=== PATIENT | male | born 1945 | race Caucasian/White ===

== ENCOUNTER 2017-12-11 11:04 | Inpatient (IN) | payer OTHER ==
[~2017-12-11] VITALS: Ht 177.8 cm; Wt 97.1 kg
--- NOTE | ~2017-12-11 | 2DMMODE ---
[address] [address] 2 D/M-MODE ECHOCARDIOGRAM Name: COLEMAN PRICE Room #: 243-P ADM IN .R.#: [id number] Admission: 12/11/17 Attend Phys: Loc Brown, Discharge: Date of : 41 Date of Service: 12/14/171701 Report #: [id number] THIS REPORT FOR: //name// APPROVED REPORT Study performed: 12/14/2017 08:22:42 EXAM: Comprehensive 2D, Doppler, and color-flow Echocardiogram Patient Location: [facility] Status: routine BSA: 2.17 HR: 108 bpm BP: 114/53 mmHg Other Information Study Quality: Technically Limited Indications CAD S^P Ascending Aortic Root repair. Post op hypotension. Left Ventricle The left ventricle is normal size. There is normal left ventricular wall thickness. Left ventricular systolic function is borderline. Right Ventricle The right ventricle is normal size. The right ventricular systolic function is normal. Catheter is present in the right ventricle. Atria Left atrium is not well visualized. Right atrium is not well visualized. Aortic Valve The aortic valve is normal in structure. Mitral Valve Mitral valve is not well visualized. Tricuspid Valve Tricuspid valve is not well visualized. Pulmonic Valve [address] [address] 2 D/M-MODE ECHOCARDIOGRAM Name: COLEMAN PRICE Abigail Room #: 243-P ADM IN M.R.#: [id number] Admission: 12/11/17 Attend Phys: Loc Brown, Discharge: Date of : 41 Date of Service: 12/14/171701 Report #: [id number] Pulmonic valve is not well visualized. Great Vessels Ascending Aortic graft noted Pericardium There is no pericardial effusion. <Conclusion> Left ventricular systolic function is borderline. There is no pericardial effusion. <ELECTRONICALLY SIGNED> By: Eleazar Srinivasan MD, FACC 12/14/171701 01 01 Eleazar Srinivasan MD, FACC /INF
--- NOTE | ~2017-12-11 | HC ---
[facility] [place] [address] CONSULTATION Name: COLEMAN PRICE Room #: [facility] IN M.R.#: [id number] Admission: 12/11/17 Attend Phys: Loc Brown DO Discharge: Date of : 41 Report #: [id number] THIS REPORT FOR: //name// CC: Loc Cabrera REASON FOR CONSULTATION: Acute kidney injury. HISTORY OF PRESENT ILLNESS: The history was obtained from the chart as the patient is currently intubated. A 72-year-old with past medical history of hypertension. He is known to have coronary artery disease and he presented to [facility] on the with symptoms of chest pain. Cardiac catheterization revealed multivessel disease and he was transferred to our facility for further evaluation and management. He is not aware or medical chart states that he does not have any kidney problems in the past. Unfortunately, the patient had a CT contrast, which revealed pulmonary embolism and an ascending aortic aneurysm. He underwent bypass surgery with BENNETT and saphenous vein grafting. He also had his thoracic aneurysm repaired with an interposition graft. Preoperatively, the patient's creatinine has been in the 1.1 range on the and this had started to climb up to 1.6 and 2.4 this morning. He did run into episodes of hypotension. I am being consulted to manage his acute kidney injury. He is currently intubated on multiple pressors. PAST MEDICAL HISTORY: 1. Hypertension. 2. Hyperlipidemia. PAST SURGICAL HISTORY: 1. Knee replacement. 2. Recent heart surgery with CABG and thoracic aneurysm repair. HOME MEDICATIONS: 1. Micardis. 2. Atorvastatin. 3. Rifaximin for unclear reasons to me. However, currently he is maintained on inpatient medications, including the followin. Amiodarone drip. 2. Propofol drip. 3. Albumin. 4. Normal saline. 5. Famotidine. FAMILY HISTORY: Significant for gout. REVIEW OF SYSTEMS: Unobtainable given the patient's current mental status. PHYSICAL EXAMINATION: [facility] [address] [place] [place] [address] CONSULTATION Name: MARY PRICECarlos Hayes Room #: [address] [place] [address] IN ..#: [id number] Admission: 12/11/17 Attend Phys: Loc Brown DO Discharge: Date of : 41 Report #: [id number] GENERAL: He is intubated, on Peter-Synephrine and dopamine. HEAD AND NECK: ET tube. Right IJ central line. CHEST: Decreased air entry bilaterally with mediastinal and pleural drain. Decreased air entry bilaterally. CARDIOVASCULAR: No rub. ABDOMEN: Soft, nontender. LOWER EXTREMITIES: No edema. LABORATORY DATA: Reviewed. Hemoglobin 14.6, pH 7.3. Potassium 3.7, BUN 25, creatinine 2.4. Anion gap 16. Chest x-ray reviewed, no florid pulmonary edema. ASSESSMENT, IMPRESSION AND PLAN: 1. Acute kidney injury. 2. Post coronary artery bypass graft. 3. Hypotension.. 4. Post-contrast exposure. 5. Thoracic aneurysm repair. 6. His acute kidney injury is all due to prerenal, contrast combination. 7. Aggressive hemodynamic support. 8. Bolus with IV fluid. 9. Transfusion. 10. Avoid nephrotoxins. 11. Discontinue all nephrotoxins and potassium supplement. 12. Monitor urine output. 13. Continue to follow along. 14. Discussed with the family and with the that if there is no improvement in his conditions in the next 24 hours, we might consider CRRT. However, I will reevaluate in the next few hours. <ELECTRONICALLY SIGNED> By: Joaquín Edwards MD 12/17/17 0638 0848 1322 Joaquín Edwards MD /nt
--- NOTE | ~2017-12-11 | EKG ---
[place] [address] [facility] [place] [address] ELECTROCARDIOGRAM REPORT Name: PRICECOLEMAN Room #: 202-P ADM IN M.R.#: [id number] Admission: 12/11/17 Attend Phys: Loc Brown DO Discharge: Date of : 41 Report #: [id number] THIS REPORT FOR: //name// 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 : 1945 Requested By: Deborah Chairez Order Number: [id number] MD: Enrique Spangler Measurements Intervals [place] Rate: 105 P: DC: QRS: 91 QRSD: 98 T: -70 QT: 377 QTc: 499 Interpretive Statements Atrial fibrillation Right axis deviation Abnormal R-wave progression, late transition Borderline T abnormalities, inferior leads Borderline prolonged QT interval Compared to ECG 12/19/2017 06:53:28 T-wave abnormality now present Heart rate has increased Electronically Signed On 12-21-2017 8:39:11 CDT by Enrique Spangler [email or web address] <ELECTRONICALLY SIGNED> By: Enrique Spangler MD, FACC 12/21/17 0839 18 18 Enrique Spangler MD, [facility] /EPI
--- NOTE | ~2017-12-11 | HC ---
[facility] [place] [address] CONSULTATION Name: PRICECOLEMAN W Room #: 202-P [facility] IN M.R.#: [id number] Admission: 12/11/17 Attend Phys: Loc Brown DO Discharge: Date of : 41 Report #: [id number] THIS REPORT FOR: //name// CC: Loc Cabrera REASON FOR CONSULTATION: I was asked to evaluate concerning postoperative leukocytosis and pneumonia. HISTORY OF PRESENT ILLNESS: The patient was a 72-year-old who was admitted on 12/11/2017 in transfer from [facility] with unstable angina. He had multivessel disease and underwent coronary artery bypass grafting with BENNETT and saphenous vein graft in addition to a thoracic aortic aneurysm repair. Postoperatively, developed acute renal failure, respiratory failure along with diagnosis of a pulmonary embolism. He subsequently had been extubated. Has his right neck Cordis in place. His chest tubes are out. He has had occasional sputum production, now growing Serratia. No nausea or vomiting. He has had chronic diarrhea that has been treated as an outpatient with rifaximin. No dysuria. No rashes or decubiti noted. He has been treated as an outpatient for right great toe soft tissue abnormality emanating from underneath his nail that he said was diagnosed as a mole. No increased pain or swelling in this region. PAST MEDICAL HISTORY: Coronary artery disease, hypertension, gastroesophageal reflux, hyperlipidemia, irritable bowel syndrome, renal calculi, osteoarthritis, cataract surgery, bilateral total knee arthroplasties, bilateral carpal tunnel release. FAMILY HISTORY: Noncontributory. SOCIAL HISTORY: Nonsmoker, no significant alcohol intake. ALLERGIES: None known. MEDICATIONS: As noted on his MAR. Now on ceftriaxone. PHYSICAL EXAMINATION: VITAL SIGNS: He is afebrile and hemodynamically stable, alert, cooperative. HEENT: Unremarkable. Right IJ catheter site is unremarkable. Sternal incision unremarkable. HEART: Regular without appreciable murmur or rub. LUNGS: Clear posteriorly. ABDOMEN: Soft and nontender. EXTREMITIES: Unremarkable except for his right great toe with a mass beneath the nail extending distally. Had an eschar over the dorsum of his distal phalanx. LABORATORY STUDIES: Sodium 146, potassium 4, bicarbonate 25, creatinine 1.2. [address] [address] CONSULTATION Name: COLEMAN PRICE Room #: 202[facility] IN ..#: [id number] Admission: 12/11/17 Attend Phys: Loc Brown DO Discharge: Date of : 41 Report #: [id number] Liver function tests normal. Hemoglobin 9.7, WBC 19.1, platelet count 272,000. It is noted that his white blood cell count postoperatively has been 12-21,000. Chest x-ray, right medial basilar infiltrate and residual left retrocardiac atelectasis and infiltrate with small left pleural effusion. IMPRESSION: A 72-year-old, postoperative day #7 from coronary artery bypass grafting and aortic aneurysm repair with persistent leukocytosis. Source seems most likely Pulmonary. We will also check for urinary tract. He does have chronic diarrhea and will be reevaluated as well. Does not appear to have intestinal ischemia or lower extremity ischemia. RECOMMENDATIONS: We will continue ceftriaxone for Serratia coverage. We will need to follow his chest x-ray, may need further imaging if effusion increases on the left. We will check urinalysis and urine culture following removal of his Arevalo catheter. Would like to remove his right IJ catheter if possible. Obtain outside records from his GI workup. May try Lomotil to control his stools. <ELECTRONICALLY SIGNED> By: Bernard Polanco MD 12/21/17 0824 1200 1422 Bernard Polanco MD /nt
--- NOTE | ~2017-12-11 | EKG ---
[place] [address] [facility] [place] [address] ELECTROCARDIOGRAM REPORT Name: ALBERTCOLEMAN W Room #: 243-P ADM IN M.R.#: [id number] Admission: 12/11/17 Attend Phys: Loc Brown DO Discharge: Date of : 41 Report #: [id number] THIS REPORT FOR: //name// [facility] Test Date: 2017-12-13 Test Time: 19:22:40 Pat Name: COLEMAN PRICE Department: Room: [facility] Gender: M Rehabilitation Physician: ROSANNA : 1945 Requested By: Alana Gallegos Order Number: [id number] MD: Enrique Spangler Measurements Intervals [place] Rate: 85 P: 71 SD: 209 QRS: 52 QRSD: 104 T: -24 QT: 408 QTc: 486 Interpretive Statements Sinus rhythm Nonspecific ST segment abnormality Compared to ECG 12/12/2017 06:06:50 Atrial premature complex(es) no longer present Electronically Signed On 12-14-2017 17:19:03 CDT by Enrique Spangler [email or web address] <ELECTRONICALLY SIGNED> By: Enrique Spangler MD, [facility] 12/14/17 1719 21 21 Enrique Spangler MD, FAC /EPI
--- NOTE | ~2017-12-11 | EKG ---
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: BLANK : 1945 Requested By: Eleazar Srinivasan Order Number: [id number] MD: Enrique Spangler Measurements Intervals [place] Rate: 63 P: 78 [place]: 204 QRS: 82 QRSD: 105 T: 74 QT: 603 QTc: 618 Interpretive Statements Sinus rhythm Borderline right axis deviation Abnormal R-wave progression, late transition Borderline repolarization abnormality Prolonged QT interval Compared to ECG 12/18/2017 06:18:58 Prolonged QT interval now present Ventricular premature complex(es) no longer present Electronically Signed On 12-19-2017 8:15:14 CDT by Enrique Spangler [email or web address] <ELECTRONICALLY SIGNED> By: Enrique Spangler MD, [facility] 12/19/17 0815 0653 0653 Enrique Spangler MD, [facility] /EPI
--- NOTE | ~2017-12-11 | EKG ---
[place] [address] [facility] [place] [address] ELECTROCARDIOGRAM REPORT Name: ALBERTCOLEMAN Room #: 243-P ADM IN M.R.#: [id number] Admission: 12/11/17 Attend Phys: Loc Brown DO Discharge: Date of : 41 Report #: [id number] THIS REPORT FOR: //name// [facility] Test Date: 2017-12-18 Test Time: 06:18:58 Pat Name: COLEMAN PRICE Department: Room: 243 P Gender: M Hop Picker: BLANK : 1945 Requested By: Eleazar Srinivasan Order Number: [id number] MD: Enrique Spangler Measurements Intervals [place] Rate: 75 P: 71 [place]: 186 QRS: 66 QRSD: 91 T: 61 QT: 420 QTc: 470 Interpretive Statements Sinus rhythm Premature ventricular and supraventricular complexes Poor R wave progression Compared to ECG 12/14/2017 06:35:55 Atrial and ventricular premature complex(es) now present nonspecific change in the ST and T-wave segments Electronically Signed On 12-18-2017 9:13:39 CDT by Enrique Spangler [email or web address] <ELECTRONICALLY SIGNED> By: Enrique Spangler MD, [facility] 12/18/17 0913 7 7 Enrique Spangler MD, [facility] /EPI
--- NOTE | ~2017-12-11 | EKG ---
[address] [place] [address] ELECTROCARDIOGRAM REPORT Name: ALBERTCOLEMAN Room #: 243-P ADM IN M.R.#: [id number] Admission: 12/11/17 Attend Phys: Loc Brown DO Discharge: Date of : 41 Report #: [id number] THIS REPORT FOR: //name// [facility] Test Date: 2017-12-14 Test Time: 06:35:55 Pat Name: COLEMAN PRICE Department: Room: 243 P Gender: M Director Of Design: BLANK : 1945 Requested By: Alana Gallegos Order Number: [id number] MD: Enrique Spangler Measurements Intervals [place] Rate: 109 P: -4 [place]: 157 QRS: 68 QRSD: 92 T: -79 QT: 375 QTc: 506 Interpretive Statements Sinus tachycardia Nonspecific ST and T wave abnormality Prolonged QT interval Compared to ECG 12/12/2017 06:06:50 No significant change was found Electronically Signed On 12-14-2017 17:23:35 CDT by Enrique Spangler [email or web address] <ELECTRONICALLY SIGNED> By: Enrique Spangler MD, [facility] 12/14/17 1723 4 4 Enrique Spangler MD, [facility] /EPI
--- NOTE | ~2017-12-11 | EKG ---
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 : 1945 Requested By: Alana Gallegos Order Number: [id number] MD: Enrique Spangler Measurements Intervals [place] Rate: 76 P: 50 CT: 226 QRS: 17 QRSD: 106 T: 19 QT: 469 QTc: 528 Interpretive Statements Sinus rhythm Atrial premature complexes Prolonged CT interval Abnormal R-wave progression, late transition No previous ECG available for comparison Electronically Signed On 12-12-2017 7:58:24 CDT by Enrique Spangler [email or web address] <ELECTRONICALLY SIGNED> By: Enrique Spangler MD, [facility] 12/12/17 0758 D: 04/605 5 Enrique Spangler MD, FACC /EPI
--- NOTE | ~2017-12-11 | O ---
[facility] [place] [address] OPERATIVE REPORT Name: COLEMAN PRICE Room #: 243-P ADM IN M.R.#: [id number] Admission: 12/11/17 Attend Phys: Loc Brown DO Discharge: Date of : 41 Report #: [id number] THIS REPORT FOR: //name// CC: Loc Flores MD [facility] DATE OF SERVICE: 12/13/2017 PREOPERATIVE DIAGNOSES: 1. Coronary artery disease, unstable angina. 2. Ascending aortic aneurysm, 4.5 cm. FINAL DIAGNOSES: 1. Coronary artery disease, unstable angina. 2. Ascending aortic aneurysm, 4.5 cm. OPERATIVE PROCEDURE PERFORMED: 1. Coronary artery bypass grafting x 4 with left internal mammary artery to LAD, radial artery Y graft to diagonal vessel, radial artery graft to the right coronary artery and saphenous vein graft to OM. 2. Left radial artery harvest. 3. Repair of ascending aortic aneurysm with 30 mm Dacron tube interposition graft. 4. Bilateral femoral artery exploration. SURGEON: Kranthi Alva MD TELEVISION CAMERA OPERATOR: HERNANDO Vazquez and HERNANDO Christine ANESTHESIA: General. OPERATIVE INDICATIONS: The patient is a 72-year-old male presenting with episodes consistent with unstable angina. He underwent evaluation including echocardiography showing normal LV systolic function and mild aortic insufficiency. The left heart catheterization showed evidence of severe multivessel coronary artery disease not amenable to percutaneous intervention. The patient subsequently referred to cardiothoracic surgery, undergone further evaluation when echocardiography demonstrated a dilated ascending aorta and CT imaging revealed the size of the ascending aorta to be approximately 4.5 cm in size. I felt that it would be prudent to proceed with replacement of the ascending aorta simultaneously as this is a 72-year-old otherwise healthy male with a projected good prognosis. OPERATIVE SUMMARY: The patient was brought to the operating room, placed on the OR table in supine position. After anesthesia was induced via general [facility] [address] [place] [address] OPERATIVE REPORT Name: COLEMAN PRICE Room #: 243-P [facility] IN [facility].#: [id number] Admission: 12/11/17 Attend Phys: Loc Brown DO Discharge: Date of : 41 Report #: [id number] endotracheal route, monitoring lines have been positioned. The patient was prepped and draped in sterile fashion with chlorhexidine. I first harvested radial artery from the left forearm using endoscopic techniques. Saphenous vein was harvested from the left lower extremity using endoscopic technique. A median sternotomy incision was made. The left internal mammary artery was harvested in standard fashion. I then opened the pericardium systemically anticoagulated the patient with heparin. Examination of the aorta showed it to be very large with good tapering towards the innominate artery. However, there was no room to place a cannula in the arch. I therefore performed femoral artery exploration first on the right femoral artery, but due to the significant bleeding into the tissues on the side, we were unable to identify the femoral artery. I therefore performed a femoral exploration on the right side. The patient was given a systemic dose of heparin and a 22-Wallisian cannula was placed in the left common femoral artery. Next, a venous cannula was placed in the right atrium. The antegrade cardioplegic cannula was positioned. Cardiopulmonary bypass was begun, retrograde cardioplegic cannula was positioned. Under low flow conditions, the aorta was cross clamped, the heart was arrested with 1 liter of cold antegrade cardioplegia, followed by 500 mL cold retrograde cardioplegia, this was augmented with topical ice slush. Diastolic arrest was achieved and maintained throughout this operation with intermittent doses of cold antegrade and retrograde cardioplegia as well as cardioplegia given down grafts and topical ice slush. We first opened up the diagonal vessel, small vessel 1.7 mm in size. Distal anastomosis was carried out in end-to-side fashion with 7-0 Prolene utilizing the radial artery. We cut this segment after about 3 cm. We then examined the right coronary system. We opened the right coronary artery just at the takeoff near the PDA. The PDA was small, but the posterolateral branch was bigger. I was able to pass a 1.5 mm probe distally in the right coronary artery. We therefore constructed a distal anastomosis in end-to-side fashion with 7-0 Prolene utilizing the radial artery at this site. Next, we addressed the first obtuse marginal vessel. We opened it up and constructed distal anastomosis in end-to-side fashion with 7-0 Prolene utilizing reverse saphenous vein. Cardioplegia was then given down of the graft. We then incised the aorta, removed our aortic root vent. We teed off the aorta just below the crossclamp. We then fully excise all aortic tissue down to the sinotubular junction. A 30 mm tube graft was brought onto the field, cut to the appropriate length, distal anastomosis was carried out in a running fashion with 4-0 Prolene. Then, the graft was cut to the appropriate length and the proximal anastomosis was fashioned with 4-0 Prolene as well. We then replaced our aortic root vent and proximal anastomoses were fashioned to the ascending aorta from the saphenous vein graft and the radial artery using 6-0 and 7-0 Prolene after a graftotomy was made with an eye cautery. Lastly, the ROSALIND was brought on the field. It was a good size and had excellent flow. We opened up the LAD, was about a 2 mm artery at this site. Distal anastomosis was carried out in end-to-side fashion with 7-0 Prolene. The pedicle was tacked to the epicardium with 6-0 Prolene. [facility] [address] [place] [address] OPERATIVE REPORT Name: COLEMAN PRICE Abigail Room #: 243-P [facility] IN ..#: [id number] Admission: 12/11/17 Attend Phys: Loc Brown DO Discharge: Date of : 41 Report #: [id number] We then brought over the segment of radial artery anastomosed to the diagonal vessel. This was anastomosed to the internal mammary artery in end-to-side fashion with 7-0 Prolene. Warm cardioplegia was given both retrograde and antegrade. We placed the patient in steep Trendelenburg. We de-aired the heart through the left ventricular apex with an 18 gauge needle while holding blood in the heart and ventilating the lungs. This was performed while giving retrograde cardioplegia. The retrograde cannula was removed and then again while giving antegrade cardioplegia. Under low flow conditions, the aortic crossclamp was released to begin the period of reperfusion and similar de-airing maneuvers were performed again. The patient was placed back in the supine position. The patient was rewarmed to 37 degree centigrade. Three successive doses of calcium and single dose of magnesium were given over 3-5 minute intervals. The lungs were reinflated. Atrial and ventricular pacing wires were placed; however, the patient spontaneously returned to normal sinus rhythm. After suitable period of reperfusion and final de-airing maneuvers, the patient was weaned from cardiopulmonary bypass without inotropic support. Protamine was given to reverse the heparin, decannulation was effected. Once satisfactory hemostasis was achieved, two 32-Wallisian chest tubes were placed in the anterior mediastinum and 24 Kolby drain in left pleural space. They were all brought out through separate stab incisions. The sternum was closed with #7 wire. The fascia, subcutaneous and skin were closed in multiple layers with absorbable suture. The procedure was completed. The patient was taken to the ICU in stable condition after the femoral artery sites were closed in multiple layers and the left common femoral artery was closed in a running 5-0 Prolene suture. By: [id number] 2015 /nt
--- NOTE | ~2017-12-11 | S ---
[facility] [address] [place] [address] SURGICAL PATH RPT PROCEDURE Name: COLEMAN PRICE Room #: 243-P ADM IN M.R.#: [id number] Admission: 12/11/17 Date of : 41 Discharge: Report #: [id number] Path Case #: [id number] PATHOLOGY REPORT DRAFT COLLECTION DATE: 12/13/2017 RECEIVED DATE: 12/14/2017 SPECIMEN(S) RECEIVED: A.Segment ascending aorta
--- NOTE | ~2017-12-11 | EKG ---
[place] [address] [address] [place] [address] ELECTROCARDIOGRAM REPORT Name: PRICECOLEMAN Room #: 202-P [facility] IN M.R.#: [id number] Admission: 12/11/17 Attend Phys: Loc Brown DO Discharge: 12/23/17 Date of : 41 Report #: [id number] THIS REPORT FOR: //name// 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 : 1945 Requested By: Eleazar Srinivasan Order Number: [id number] MD: Enrique Spangler Measurements Intervals Lanse Rate: 75 P: 32 AL: 185 QRS: 56 QRSD: 108 T: 90 QT: 438 QTc: 490 Interpretive Statements Sinus rhythm Low voltage, precordial leads Borderline prolonged QT interval Compared to ECG 12/20/2017 21:19:05 Sinus rhythm has replaced atrial fibrillation Electronically Signed On 12-23-2017 16:33:46 CDT by Enrique Spangler [email or web address] <ELECTRONICALLY SIGNED> By: Enrique Spangler MD, [facility] 12/23/17 1633 7 7 Enrique Spangler MD, [facility] /EPI
--- NOTE | ~2017-12-11 | 2DMMODE ---
[facility] [address] [place] [address] 2 D/M-MODE ECHOCARDIOGRAM Name: COLEMAN PRICE Room #: 213-P [facility] IN [facility].#: [id number] Admission: 12/11/17 Attend Phys: Loc Brown, Discharge: Date of : 41 Date of Service: 12/12/17 1219 Report #: [id number] THIS REPORT FOR: //name// APPROVED REPORT Study performed: 12/12/2017 08:03:00 EXAM: Comprehensive 2D, Doppler, and color-flow Echocardiogram Patient Location: Echo lab Room #: 213 Status: routine BSA: 2.13 HR: 54 bpm BP: 135/73 mmHg Rhythm: NSR/PVCs Other Information Study Quality: Excellent Indications Pre-Op Hx: CAD, HTN, HLD 2D Dimensions RVDd: 32.33 mm LVEF(%): 58.77 (>50%) IVSd: 11.87 (7-11mm) LVOT Diam: 21.77 (18-24mm) LVDd: 53.92 mm PWd: 11.86 (7-11mm) Ascending Ao: 43.56 (22-36mm) LVDs: 36.98 (25-40mm) Aortic Root: 34.34 mm IVC: 21.00 mm Gallego's LVEF: 58.77 % Volumes Left Atrial Volume (Systole) Single Plane 4CH: 74.47 mL Single Plane 2CH: 79.02 mL LA ESV Index: 40.00 mL/m2 Aortic Valve AoV Peak Abran.: 1.83 m/s AO Peak Gr.: 13.42 mmHg LVOT Max P.82 mmHg LVOT Max V: 1.10 m/s LEWIS Vmax: 2.23 cm2 Mitral Valve E/A Ratio: 0.6 [facility] [place] [address] 2 D/M-MODE ECHOCARDIOGRAM Name: COLEMAN RPICE Room #: 213-P [facility] IN .R.#: [id number] Admission: 12/11/17 Attend Phys: Loc Brown, Discharge: Date of : 41 Date of Service: 12/12/17 1219 Report #: [id number] Decel. Time: 263.29 ms MV E Max Abran.: 0.73 m/s MV A Abran.: 1.25 m/s MV PHT: 76.35 ms IVRT: 115.34 ms Pulmonary Valve PV Peak Abran.: 0.80 m/s PV Peak Gr.: 2.56 mmHg Pulmonary Vein P Vein S: 0.57 m/s P Vein A: 0.33 m/s P Vein D: 0.37 m/s P Vein A Dur.: 156.9 msec P Vein S/D Ratio: 1.54 Tricuspid Valve RAP Estimate: 5.00 mmHg Left Ventricle The left ventricle is normal size. There is normal LV segmental wall motion. Mild concentric left ventricular hypertrophy. The left ventricular systolic function is normal. LVEF is 55-60%. Mild diastolic dysfunction is present (impaired relaxation pattern). Right Ventricle The right ventricle is normal size. The right ventricular systolic function is normal. Atria Left atrium is mildly dilated. Right atrium is at the upper limits of normal. Aortic Valve The Aortic valve is sclerotic. Mild aortic regurgitation. There is no aortic valvular stenosis. Mitral Valve There is mild mitral annular calcification. Trace mitral regurgitation. No evidence of mitral valve stenosis. Tricuspid Valve The tricuspid valve is normal in structure. There is no tricuspid valve regurgitation noted. Unable to assess PA pressure. Pulmonic Valve The pulmonary valve is normal in structure. Trace pulmonic [address] [address] 2 D/M-MODE ECHOCARDIOGRAM Name: MARY PRICECarlos Hayes Room #: 213-P [facility]#: [id number] Admission: 12/11/17 Attend Phys: Loc Brown, Discharge: Date of : 41 Date of Service: 12/12/17 1219 Report #: [id number] regurgitation. Great Vessels The aortic root is normal in size. 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 IVC is normal in size and collapses >50% with inspiration. Pericardium There is no pericardial effusion. <Conclusion> Mild concentric left ventricular hypertrophy. LVEF is 55-60%. Left atrium is mildly dilated. Mild aortic regurgitation. 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 <ELECTRONICALLY SIGNED> By: Eleazar Srinivasan MD, FACC 12/12/171218 18 18 Eleazar Srinivasan MD, FACC /INF
[~2017-12-11 11:04] MED LIST: ADULT LOW DOSE81 MG PO; ALLOPURINOL 10100 M1 PO; CRANBERRY400 MG PO; FISH OIL 1,0001 EAC5; FLAX OIL1000 MG PO; LIPITOR10 MG PO; LIPITOR80 MG PO; MICARDIS40 MG PO; MULTIVITAMINS; PROTONIX40 M1 PO; TOPROL XL25 MG PO; XIFAXAN 200 MG200 MG
[2017-12-11 13:15] VITALS: BP 152/85
[2017-12-11 15:15] VITALS: BP 152/85
[2017-12-11 20:52] VITALS: BP 140/77
[2017-12-11 21:59] LABS: URINE BILIRUBIN NEGATIVE (Negative); URINE BLOOD TRACE (Negative); URINE CLARITY CLEAR; URINE COLOR YELLOW; URINE GLUCOSE-RANDOM* NEGATIVE (Negative); URINE KETONES TRACE (Negative); URINE LEUKOCYTES-REFLEX NEGATIVE (Negative); URINE NITRITE-REFLEX NEGATIVE (Negative); URINE PROTEIN (DIPSTICK) NEGATIVE (Negative); URINE SPECIFIC GRAVITY 1.015 (1.005-1.035); URINE UROBILINOGEN 0.2 E.U./dl (0.2-1.0)
[2017-12-12 00:55] VITALS: BP 124/72
[2017-12-12 04:45] VITALS: BP 125/77
[2017-12-12 05:16] LABS: ABSOLUTE NEUTROPHILS 4.8 thou/uL (1.4-8.2); BASOPHILS 0.6 % (0.0-2.0); EOSINOPHILS 4.4 % (0.0-3.0); HEMOGLOBIN 11.4 gm/dL (14.0-18.0); LYMPHOCYTES 24.2 % (24.0-44.0); MCH 31.6 pg (26.0-34.0); MCHC 33.4 g/dL (28.0-37.0); MCV 94.5 fL (80.0-100.0); MONOCYTES 10.6 % (1.0-8.0); PLATELET COUNT 237 thou/uL (150-400); POLYS 60.2 % (36.0-66.0); RDW 14.2 % (10.5-14.5)
[2017-12-12 05:23] LABS: ALBUMIN 3.2 g/dL (3.4-5.0); APTT 27.5 Seconds (24.5-32.8); CALCIUM 8.8 mg/dL (8.5-10.1); CREATININE 1.1 mg/dL (0.7-1.3); INR 1.1; POTASSIUM 3.5 mmol/L (3.5-5.1); TOTAL BILIRUBIN 0.6 mg/dL (<0.1-1.0); TOTAL PROTEIN 6.1 g/dL (6.4-8.2)
[2017-12-12 07:22] VITALS: BP 135/73
[2017-12-12 11:34] VITALS: BP 126/65
[2017-12-12 15:12] LABS: GLYCOHEMOGLOBIN (HGB A1C) 5.2 % (4.8-5.6)
[2017-12-12 15:45] VITALS: BP 147/87
[2017-12-12 18:37] LABS: HEMOGLOBIN 12.3 gm/dL (14.0-18.0); MCH 31.4 pg (26.0-34.0); MCHC 33.3 g/dL (28.0-37.0); MCV 94.4 fL (80.0-100.0); RBC 3.92 mil/uL (4.50-6.00); RDW 14.5 % (10.5-14.5); WBC 9.4 thou/uL (4.0-11.0)
[2017-12-12 18:42] LABS: INR 1.1; PROTIME 10.9 Seconds (9.3-11.4)
[2017-12-12 20:26] VITALS: BP 138/77
[2017-12-13 00:38] VITALS: BP 133/67
[2017-12-13 04:55] VITALS: BP 137/69
[2017-12-13 08:35] VITALS: BP 146/86; BP 152/77
[2017-12-13 10:34] VITALS: BP 147/76
[2017-12-13 17:15] LABS: MCH 31.3 pg (26.0-34.0); MCHC 32.7 g/dL (28.0-37.0); MCV 95.6 fL (80.0-100.0); RBC 2.21 mil/uL (4.50-6.00); RDW 14.3 % (10.5-14.5); WBC 14.4 thou/uL (4.0-11.0)
[2017-12-13 17:17] LABS: HEMATOCRIT 21.1 % (42.0-52.0); HEMOGLOBIN 6.9 gm/dL (14.0-18.0)
[2017-12-13 17:28] LABS: APTT 28.5 Seconds (24.5-32.8); FIBRINOGEN 209.5 mg/dL (210-360); INR 1.4; PROTIME 14.2 Seconds (9.3-11.4)
[2017-12-13 18:26] LABS: POC BE 3 mmol/L (-2.0 to +3.0); POC CA IONIZED 4.6 mg/dL (4.5-5.3); POC GLUCOSE 104 mg/dL (70-99); POC HEMOGLOBIN 11.2 g/dL (14.0-18.0); POC POTASSIUM 3.8 mmol/L (3.5-5.1); POC SODIUM 141 mmol/L (136-145); POC pCO2 40.4 mmHg (35.0-45.0); POC pH 7.432 (7.360-7.450)
[2017-12-13 18:27] LABS: POC BE 0 mmol/L (-2.0 to +3.0); POC CA IONIZED 4.6 mg/dL (4.5-5.3); POC GLUCOSE 160 mg/dL (70-99); POC HCO3 26.2 mmol/L (22.0-26.0); POC HEMOGLOBIN 11.2 g/dL (14.0-18.0); POC POTASSIUM 3.3 mmol/L (3.5-5.1); POC SODIUM 142 mmol/L (136-145); POC pCO2 53.9 mmHg (35.0-45.0); POC pH 7.295 (7.360-7.450)
[2017-12-13 18:27] LABS: POC BE -1 mmol/L (-2.0 to +3.0); POC CA IONIZED 5.9 mg/dL (4.5-5.3); POC GLUCOSE 119 mg/dL (70-99); POC HCO3 24.4 mmol/L (22.0-26.0); POC HEMOGLOBIN 8.5 g/dL (14.0-18.0); POC POTASSIUM 3.8 mmol/L (3.5-5.1); POC SODIUM 142 mmol/L (136-145); POC pCO2 40.6 mmHg (35.0-45.0); POC pH 7.387 (7.360-7.450)
[2017-12-13 18:27] LABS: POC BE -1 mmol/L (-2.0 to +3.0); POC CA IONIZED 4.3 mg/dL (4.5-5.3); POC GLUCOSE 169 mg/dL (70-99); POC HCO3 23.7 mmol/L (22.0-26.0); POC HEMOGLOBIN 8.8 g/dL (14.0-18.0); POC POTASSIUM 3.7 mmol/L (3.5-5.1); POC SODIUM 141 mmol/L (136-145); POC pCO2 37.6 mmHg (35.0-45.0); POC pH 7.407 (7.360-7.450)
[2017-12-13 18:27] LABS: POC BE 0 mmol/L (-2.0 to +3.0); POC CA IONIZED 6.2 mg/dL (4.5-5.3); POC GLUCOSE 149 mg/dL (70-99); POC HCO3 24.8 mmol/L (22.0-26.0); POC HEMOGLOBIN 7.1 g/dL (14.0-18.0); POC POTASSIUM 3.6 mmol/L (3.5-5.1); POC SODIUM 142 mmol/L (136-145); POC pCO2 41.9 mmHg (35.0-45.0); POC pH 7.379 (7.360-7.450)
[2017-12-13 18:27] LABS: POC BE -1 mmol/L (-2.0 to +3.0); POC CA IONIZED 7.5 mg/dL (4.5-5.3); POC GLUCOSE 153 mg/dL (70-99); POC HCO3 24.4 mmol/L (22.0-26.0); POC HEMOGLOBIN 8.5 g/dL (14.0-18.0); POC POTASSIUM 4.4 mmol/L (3.5-5.1); POC SODIUM 141 mmol/L (136-145); POC pCO2 44.2 mmHg (35.0-45.0)
[2017-12-13 18:27] LABS: POC BE -1 mmol/L (-2.0 to +3.0); POC CA IONIZED 4.4 mg/dL (4.5-5.3); POC GLUCOSE 163 mg/dL (70-99); POC HCO3 24.4 mmol/L (22.0-26.0); POC HEMOGLOBIN 8.8 g/dL (14.0-18.0); POC POTASSIUM 4.2 mmol/L (3.5-5.1); POC SODIUM 143 mmol/L (136-145); POC pCO2 42.8 mmHg (35.0-45.0); POC pH 7.365 (7.360-7.450)
[2017-12-13 18:27] LABS: POC BE -4 mmol/L (-2.0 to +3.0); POC CA IONIZED 4.2 mg/dL (4.5-5.3); POC GLUCOSE 149 mg/dL (70-99); POC HCO3 22.4 mmol/L (22.0-26.0); POC HEMOGLOBIN 8.8 g/dL (14.0-18.0); POC SODIUM 140 mmol/L (136-145); POC pCO2 47.4 mmHg (35.0-45.0); POC pH 7.282 (7.360-7.450)
[2017-12-13 18:27] LABS: POC BE -1 mmol/L (-2.0 to +3.0); POC CA IONIZED 4.2 mg/dL (4.5-5.3); POC GLUCOSE 154 mg/dL (70-99); POC HEMOGLOBIN 8.8 g/dL (14.0-18.0); POC POTASSIUM 3.5 mmol/L (3.5-5.1); POC SODIUM 140 mmol/L (136-145); POC pCO2 39.6 mmHg (35.0-45.0); POC pH 7.391 (7.360-7.450)
[2017-12-13 18:27] LABS: POC BE -1 mmol/L (-2.0 to +3.0); POC CA IONIZED 4.3 mg/dL (4.5-5.3); POC GLUCOSE 168 mg/dL (70-99); POC HEMOGLOBIN 8.5 g/dL (14.0-18.0); POC POTASSIUM 3.7 mmol/L (3.5-5.1); POC SODIUM 142 mmol/L (136-145); POC pCO2 38.3 mmHg (35.0-45.0); POC pH 7.405 (7.360-7.450)
[2017-12-13 19:25] LABS: HEMATOCRIT 27.3 % (42.0-52.0); MCH 31.5 pg (26.0-34.0); MCHC 33.3 g/dL (28.0-37.0); MCV 94.5 fL (80.0-100.0); PLATELET COUNT 154 thou/uL (150-400); RBC 2.89 mil/uL (4.50-6.00); RDW 14.1 % (10.5-14.5); WBC 21.5 thou/uL (4.0-11.0)
[2017-12-13 19:27] LABS: HEMOGLOBIN 9.1 gm/dL (14.0-18.0)
[2017-12-13 19:35] LABS: CREATININE 1.2 mg/dL (0.7-1.3); MAGNESIUM 2.4 mg/dL (1.8-2.4); POTASSIUM 3.9 mmol/L (3.5-5.1)
[2017-12-13 19:40] LABS: BE(vivo) -7.2 mmol/L (-2 to +3); HCO3 19.3 mmol/L (22.0-26.0); PCO2 43.2 mmHg (35.0-45.0); PO2 75.9 mmHg (80.0-100.0); sO2 93.4 % (92.0-98.0)
[2017-12-13 19:41] LABS: pH 7.268 (7.360-7.450)
[2017-12-13 19:58] LABS: APTT 31.8 Seconds (24.5-32.8); INR 1.2; PROTIME 12.5 Seconds (9.3-11.4)
[2017-12-13 20:12] LABS: ABSOLUTE NEUTROPHILS 19.4 thou/uL (1.4-8.2); ANISOCYTOSIS 1+
[2017-12-13 20:30] LABS: BE(vivo) -5.7 mmol/L (-2 to +3); HCO3 19.9 mmol/L (22.0-26.0); PCO2 39.6 mmHg (35.0-45.0); sO2 94.1 % (92.0-98.0)
[2017-12-13 23:22] LABS: BE(vivo) -4.3 mmol/L (-2 to +3); HCO3 21.6 mmol/L (22.0-26.0); PCO2 42.9 mmHg (35.0-45.0); PO2 123.7 mmHg (80.0-100.0); pH 7.319 (7.360-7.450); sO2 98.2 % (92.0-98.0)
[2017-12-13 23:44] LABS: CALCIUM 9.3 mg/dL (8.5-10.1); CREATININE 1.6 mg/dL (0.7-1.3); HEMATOCRIT 24.3 % (42.0-52.0); HEMOGLOBIN 7.9 gm/dL (14.0-18.0); POTASSIUM 3.6 mmol/L (3.5-5.1)
[2017-12-14 00:29] VITALS: BP 100/63; BP 80/53
[2017-12-14 01:04] VITALS: BP 93/57
[2017-12-14 05:20] LABS: BE(vivo) -8.6 mmol/L (-2 to +3); HCO3 16.6 mmol/L (22.0-26.0); PCO2 32.8 mmHg (35.0-45.0); PO2 110.3 mmHg (80.0-100.0); sO2 97.8 % (92.0-98.0)
[2017-12-14 05:22] LABS: pH 7.322 (7.360-7.450)
[2017-12-14 05:44] LABS: HEMATOCRIT 24.7 % (42.0-52.0); HEMOGLOBIN 8.1 gm/dL (14.0-18.0)
[2017-12-14 05:50] LABS: CALCIUM 8.7 mg/dL (8.5-10.1); CREATININE 2.4 mg/dL (0.7-1.3); POTASSIUM 3.7 mmol/L (3.5-5.1)
[2017-12-14 06:03] LABS: HEMATOCRIT 24.5 % (42.0-52.0); HEMOGLOBIN 8.1 gm/dL (14.0-18.0); MCH 30.9 pg (26.0-34.0); MCHC 32.8 g/dL (28.0-37.0); MCV 94.2 fL (80.0-100.0); RBC 2.6 mil/uL (4.50-6.00); RDW 15.4 % (10.5-14.5); WBC 14.6 thou/uL (4.0-11.0)
[2017-12-14 06:50] VITALS: BP 112/53; BP 117/56
[2017-12-14 07:39] LABS: HCO3 21.5 mmol/L (22.0-26.0); PO2 VENOUS 27.4 mmHg (35.0-45.0)
[2017-12-14 09:26] LABS: BE(vivo) -7.2 mmol/L (-2 to +3); HCO3 17.9 mmol/L (22.0-26.0); PCO2 34.3 mmHg (35.0-45.0); PO2 60.2 mmHg (80.0-100.0); pH 7.335 (7.360-7.450); sO2 89.8 % (92.0-98.0)
[2017-12-14 10:28] LABS: BE(vivo) -3.7 mmol/L (-2 to +3); HCO3 20.9 mmol/L (22.0-26.0); PCO2 35.6 mmHg (35.0-45.0); pH 7.387 (7.360-7.450)
[2017-12-14 11:20] LABS: BE(vivo) -3.8 mmol/L (-2 to +3); PCO2 42.8 mmHg (35.0-45.0); pH 7.328 (7.360-7.450); sO2 87.1 % (92.0-98.0)
[2017-12-14 13:36] LABS: CALCIUM 8.1 mg/dL (8.5-10.1); CREATININE 2.1 mg/dL (0.7-1.3); POTASSIUM 3.2 mmol/L (3.5-5.1)
[2017-12-14 17:50] LABS: BE(vivo) -0.9 mmol/L (-2 to +3); HCO3 22.5 mmol/L (22.0-26.0); PCO2 32.1 mmHg (35.0-45.0); PO2 76.8 mmHg (80.0-100.0); pH 7.464 (7.360-7.450); sO2 96.2 % (92.0-98.0)
[2017-12-14 20:40] LABS: HEMATOCRIT 23.9 % (42.0-52.0)
[2017-12-14 23:50] VITALS: BP 102/46; BP 90/51; BP 99/48
[2017-12-15 05:09] LABS: BE(vivo) -0.3 mmol/L (-2 to +3); HCO3 24.3 mmol/L (22.0-26.0); PCO2 39.8 mmHg (35.0-45.0); PO2 82.6 mmHg (80.0-100.0); pH 7.404 (7.360-7.450); sO2 96.2 % (92.0-98.0)
[2017-12-15 05:32] LABS: HEMATOCRIT 25.2 % (42.0-52.0); HEMOGLOBIN 8.5 gm/dL (14.0-18.0); MCH 30.7 pg (26.0-34.0); MCHC 33.9 g/dL (28.0-37.0); MCV 90.6 fL (80.0-100.0); PLATELET COUNT 105 thou/uL (150-400); RBC 2.78 mil/uL (4.50-6.00); RDW 15.3 % (10.5-14.5); WBC 12.5 thou/uL (4.0-11.0)
[2017-12-15 05:39] LABS: CALCIUM 7.7 mg/dL (8.5-10.1); CREATININE 1.9 mg/dL (0.7-1.3); POTASSIUM 3.6 mmol/L (3.5-5.1)
[2017-12-15 05:41] LABS: ALBUMIN 2.7 g/dL (3.4-5.0); CALCIUM 7.8 mg/dL (8.5-10.1); CREATININE 1.9 mg/dL (0.7-1.3); PHOSPHORUS 3.4 mg/dL (2.5-4.9); POTASSIUM 3.6 mmol/L (3.5-5.1)
[2017-12-15 05:42] LABS: APTT 38.3 Seconds (24.5-32.8); INR 1.4; PROTIME 14.1 Seconds (9.3-11.4)
[2017-12-15 08:10] LABS: ABSOLUTE NEUTROPHILS 10.1 thou/uL (1.4-8.2)
[2017-12-15 08:11] LABS: ANISOCYTOSIS 1+; POLYCHROMASIA SLIGHT
[2017-12-15 20:44] VITALS: BP 113/77
[2017-12-16 00:58] VITALS: BP 102/68
[2017-12-16 04:24] VITALS: BP 122/63
[2017-12-16 04:41] LABS: ALBUMIN 2.7 g/dL (3.4-5.0); CALCIUM 7.9 mg/dL (8.5-10.1); PHOSPHORUS 3.2 mg/dL (2.5-4.9); POTASSIUM 3.5 mmol/L (3.5-5.1)
[2017-12-16 04:42] LABS: HEMATOCRIT 23.9 % (42.0-52.0); HEMOGLOBIN 8.1 gm/dL (14.0-18.0); MCH 30.9 pg (26.0-34.0); MCHC 33.8 g/dL (28.0-37.0); MCV 91.3 fL (80.0-100.0); RBC 2.62 mil/uL (4.50-6.00); RDW 15.1 % (10.5-14.5); WBC 12.7 thou/uL (4.0-11.0)
[2017-12-16 06:45] VITALS: BP 96/66
[2017-12-16 12:00] LABS: BE(vivo) 0.3 mmol/L (-2 to +3); HCO3 24.4 mmol/L (22.0-26.0); PCO2 37.3 mmHg (35.0-45.0); PO2 77.3 mmHg (80.0-100.0); pH 7.434 (7.360-7.450); sO2 95.9 % (92.0-98.0)
[2017-12-16 15:09] LABS: BE(vivo) -2.6 mmol/L (-2 to +3); HCO3 21.6 mmol/L (22.0-26.0); PCO2 34.9 mmHg (35.0-45.0); PO2 69.9 mmHg (80.0-100.0); pH 7.409 (7.360-7.450); sO2 94.3 % (92.0-98.0)
[2017-12-16 16:22] LABS: BE(vivo) -0.3 mmol/L (-2 to +3); HCO3 24.4 mmol/L (22.0-26.0); PCO2 40.3 mmHg (35.0-45.0); PO2 87.8 mmHg (80.0-100.0); sO2 96.7 % (92.0-98.0)
[2017-12-17] VITALS (14 sets, daily range): BP systolic 111–167; BP diastolic 64–153
[2017-12-17 05:03] LABS: ALBUMIN 2.6 g/dL (3.4-5.0); CALCIUM 8.3 mg/dL (8.5-10.1); CREATININE 1.8 mg/dL (0.7-1.3); POTASSIUM 3.5 mmol/L (3.5-5.1)
[2017-12-17 05:24] LABS: PHOSPHORUS 2.4 mg/dL (2.5-4.9)
[2017-12-17 05:26] LABS: HEMATOCRIT 24.5 % (42.0-52.0); HEMOGLOBIN 8.2 gm/dL (14.0-18.0); MCH 30.9 pg (26.0-34.0); MCHC 33.7 g/dL (28.0-37.0); RBC 2.66 mil/uL (4.50-6.00); RDW 15.1 % (10.5-14.5); WBC 15.9 thou/uL (4.0-11.0)
[2017-12-17 10:11] LABS: PCO2 37.1 mmHg (35.0-45.0); PO2 115.4 mmHg (80.0-100.0); pH 7.446 (7.360-7.450); sO2 98.4 % (92.0-98.0)
[2017-12-18] VITALS (26 sets, daily range): BP systolic 93–172; BP diastolic 51–147
[2017-12-18 08:48] LABS: ALBUMIN 3.2 g/dL (3.4-5.0); CALCIUM 8.8 mg/dL (8.5-10.1); CREATININE 1.3 mg/dL (0.7-1.3); PHOSPHORUS 2.2 mg/dL (2.5-4.9); POTASSIUM 3.6 mmol/L (3.5-5.1)
[2017-12-19] VITALS (29 sets, daily range): BP systolic 63–145; BP diastolic 39–92
[2017-12-19 04:45] LABS: HEMATOCRIT 25.3 % (42.0-52.0); HEMOGLOBIN 8.4 gm/dL (14.0-18.0); MCH 30.4 pg (26.0-34.0); MCHC 33.1 g/dL (28.0-37.0); RBC 2.75 mil/uL (4.50-6.00); RDW 14.5 % (10.5-14.5); WBC 17.7 thou/uL (4.0-11.0)
[2017-12-19 04:46] LABS: PLATELET COUNT 231 thou/uL (150-400)
[2017-12-19 04:55] LABS: ALBUMIN 2.4 g/dL (3.4-5.0); CALCIUM 8.3 mg/dL (8.5-10.1); CREATININE 1.2 mg/dL (0.7-1.3); PHOSPHORUS 3.1 mg/dL (2.5-4.9); POTASSIUM 3.5 mmol/L (3.5-5.1)
[2017-12-19 08:50] LABS: ABSOLUTE NEUTROPHILS 14.2 thou/uL (1.4-8.2); METAMYELOCYTES 1 %; MYELOCYTES 1 %; NUCLEATED RBCS 3 /100WBC
[2017-12-19 08:51] LABS: PLATELET ESTIMATE NORMAL
[2017-12-20] VITALS (21 sets, daily range): BP systolic 84–160; BP diastolic 40–91
[2017-12-20 07:29] LABS: HEMOGLOBIN 9.7 gm/dL (14.0-18.0); MCH 30.7 pg (26.0-34.0)
[2017-12-20 07:30] LABS: HEMATOCRIT 29.7 % (42.0-52.0); MCHC 32.6 g/dL (28.0-37.0); MCV 94.1 fL (80.0-100.0); RBC 3.16 mil/uL (4.50-6.00); RDW 15.4 % (10.5-14.5); WBC 19.1 thou/uL (4.0-11.0)
[2017-12-20 07:55] LABS: ALBUMIN 2.7 g/dL (3.4-5.0); CREATININE 1.2 mg/dL (0.7-1.3); PHOSPHORUS 3.6 mg/dL (2.5-4.9)
[2017-12-20 13:54] LABS: URINE BILIRUBIN NEGATIVE (Negative); URINE BLOOD 3+ (Negative); URINE CLARITY CLEAR; URINE COLOR YELLOW; URINE GLUCOSE-RANDOM* NEGATIVE (Negative); URINE KETONES NEGATIVE (Negative); URINE LEUKOCYTES-REFLEX 3+ (Negative); URINE NITRITE-REFLEX NEGATIVE (Negative); URINE PROTEIN (DIPSTICK) NEGATIVE (Negative); URINE UROBILINOGEN 0.2 E.U./dl (0.2-1.0)
[2017-12-20 14:04] LABS: BACTERIA-REFLEX 1-9 Few /HPF (None Seen); CASTS None Seen /LPF (None Seen); CRYSTALS None Seen /LPF (None Seen); SQUAMOUS 0-3 Few /LPF (0-3); URINE RBC None Seen /HPF (0-2); URINE WBC-REFLEX 0-5 Rare /HPF (0-5)
[2017-12-21 03:34] VITALS: BP 115/57
[2017-12-21 07:26] LABS: HEMATOCRIT 26.9 % (42.0-52.0); HEMOGLOBIN 8.7 gm/dL (14.0-18.0); MCH 30.2 pg (26.0-34.0); MCHC 32.3 g/dL (28.0-37.0); MCV 93.5 fL (80.0-100.0); RBC 2.88 mil/uL (4.50-6.00); RDW 15.2 % (10.5-14.5); WBC 12.5 thou/uL (4.0-11.0)
[2017-12-21 07:48] LABS: ALBUMIN 2.5 g/dL (3.4-5.0); CALCIUM 7.9 mg/dL (8.5-10.1); CREATININE 1.2 mg/dL (0.7-1.3); PHOSPHORUS 3.8 mg/dL (2.5-4.9); POTASSIUM 3.2 mmol/L (3.5-5.1); TOTAL BILIRUBIN 1.1 mg/dL (<0.1-1.0); TOTAL PROTEIN 4.5 g/dL (6.4-8.2)
[2017-12-21 07:59] VITALS: BP 112/50
[2017-12-21 11:16] VITALS: BP 93/45
[2017-12-21 15:20] VITALS: BP 95/49
[2017-12-21 19:55] VITALS: BP 119/68
[2017-12-21 23:53] VITALS: BP 131/36
[2017-12-22 04:36] VITALS: BP 120/41
[2017-12-22 04:48] LABS: HEMATOCRIT 24.9 % (42.0-52.0); HEMOGLOBIN 8.2 gm/dL (14.0-18.0); MCH 30.8 pg (26.0-34.0); MCHC 32.9 g/dL (28.0-37.0); MCV 93.6 fL (80.0-100.0); RBC 2.67 mil/uL (4.50-6.00); WBC 10.1 thou/uL (4.0-11.0)
[2017-12-22 04:57] LABS: CALCIUM 7.9 mg/dL (8.5-10.1); CREATININE 1.3 mg/dL (0.7-1.3)
[2017-12-22 05:01] LABS: INR 1.8; PROTIME 18.3 Seconds (9.3-11.4)
[2017-12-22 05:03] LABS: POTASSIUM 2.9 mmol/L (3.5-5.1)
[2017-12-22 08:59] VITALS: BP 120/51
[2017-12-22 12:32] VITALS: BP 121/47
[2017-12-22 19:15] VITALS: BP 132/43
[2017-12-23 03:42] LABS: ALBUMIN 2.7 g/dL (3.4-5.0); CALCIUM 8.3 mg/dL (8.5-10.1); CREATININE 1.2 mg/dL (0.7-1.3); POTASSIUM 3.1 mmol/L (3.5-5.1); PROTIME 36.2 Seconds (9.3-11.4)
[2017-12-23 03:48] LABS: INR 3.6
[2017-12-23 04:25] VITALS: BP 100/57
[2017-12-23 08:22] VITALS: BP 112/66
[2017-12-23 11:25] VITALS: BP 113/67
[2017-12-23] MEDS ORDERED: PACERONE 200 M200 M1 PO (14:37)
[2017-12-23 14:54] VITALS: BP 113/67
[2017-12-23] MEDS ORDERED: CEFDINIR300 MG PO (15:09)
[2017-12-23] MEDS ORDERED: PERCOCET PO (15:09)
[2017-12-23] MEDS ORDERED: COUMADIN 2 MG TA2 M1 PO (15:12)
== END 2017-12-23 15:35 | disposition home or self-care (01) | DRG 235 ==
LOC: 2N 11:04 → TBA 12-13 09:30 → ICU 12-13 19:14 → 2N 12-20 16:30
PROVIDERS: Family Medicine; Hospitalist; Internal Medicine Cardiovascular Disease; Internal Medicine Nephrology; Internal Medicine Pulmonary Disease; Nurse Practitioner; Specialist; Thoracic Surgery (Cardiothoracic Vascular Surgery)
PROC: 5A1221Z Performance of Cardiac Output, Continuous (ICD-10-PCS; principal; 2017-12-13)
PROC: 02110AW Bypass Coronary Artery, Two Arteries from Aorta with Autologous Arterial Tissue, Open Approach (ICD-10-PCS; principal; 2017-12-13)
PROC: 06BQ4ZZ Excision of Left Saphenous Vein, Percutaneous Endoscopic Approach (ICD-10-PCS; principal; 2017-12-13)
PROC: 021009W Bypass Coronary Artery, One Artery from Aorta with Autologous Venous Tissue, Open Approach (ICD-10-PCS; principal; 2017-12-13)
PROC: 04R00JZ Replacement of Abdominal Aorta with Synthetic Substitute, Open Approach (ICD-10-PCS; principal; 2017-12-13)
PROC: 30233K1 Transfusion of Nonautologous Frozen Plasma into Peripheral Vein, Percutaneous Approach (ICD-10-PCS; principal; 2017-12-13)
PROC: 03BC4ZZ Excision of Left Radial Artery, Percutaneous Endoscopic Approach (ICD-10-PCS; principal; 2017-12-13)
PROC: 30233L1 Transfusion of Nonautologous Fresh Plasma into Peripheral Vein, Percutaneous Approach (ICD-10-PCS; principal; 2017-12-13)
PROC: 02100Z9 Bypass Coronary Artery, One Artery from Left Internal Mammary, Open Approach (ICD-10-PCS; principal; 2017-12-13)
PROC: 5A1945Z Respiratory Ventilation, 24-96 Consecutive Hours (ICD-10-PCS; 2017-12-14)
PROC: 0BH17EZ Insertion of Endotracheal Airway into Trachea, Via Natural or Artificial Opening (ICD-10-PCS; 2017-12-14)
PROC: 30233N1 Transfusion of Nonautologous Red Blood Cells into Peripheral Vein, Percutaneous Approach (ICD-10-PCS; 2017-12-14)
PROC: 05HB33Z Insertion of Infusion Device into Right Basilic Vein, Percutaneous Approach (ICD-10-PCS; 2017-12-20)
DX: I25.110 Atherosclerotic heart disease of native coronary artery with unstable angina pectoris (principal); I26.99 Other pulmonary embolism without acute cor pulmonale; J96.01 Acute respiratory failure with hypoxia; G93.40 Encephalopathy, unspecified; J18.9 Pneumonia, unspecified organism; L76.32 Postprocedural hematoma of skin and subcutaneous tissue following other procedure; E87.2 Acidosis; N17.9 Acute kidney failure, unspecified; E87.0 Hyperosmolality and hypernatremia; I10 Essential (primary) hypertension; I71.4 Abdominal aortic aneurysm, without rupture; M10.9 Gout, unspecified; I35.0 Nonrheumatic aortic (valve) stenosis; E86.9 Volume depletion, unspecified; I95.9 Hypotension, unspecified; I48.0 Paroxysmal atrial fibrillation; K21.9 Gastro-esophageal reflux disease without esophagitis; K58.0 Irritable bowel syndrome with diarrhea; E78.5 Hyperlipidemia, unspecified; R26.9 Unspecified abnormalities of gait and mobility; E87.6 Hypokalemia; M19.90 Unspecified osteoarthritis, unspecified site; Z96.653 Presence of artificial knee joint, bilateral; Z96.1 Presence of intraocular lens; Z87.442 Personal history of urinary calculi; Z79.82 Long term (current) use of aspirin; Z79.899 Other long term (current) drug therapy; Z98.42 Cataract extraction status, left eye; Z98.41 Cataract extraction status, right eye; Z91.018 Allergy to other foods
CPT/HCPCS: 10194; 10196; 10797; 27000; 47000; 47001; 47002; 47297; 47375; 50010; 50167; 50249; 50318; 50409; 50456; 50497; 50662; 50668; 51301; 52088; 52131; 52190; 52314; 53327; 53358; 54118; 55501; 56524; 56525; 56526; 56527; 56528; 56529; 56531; 56534; 56639; 57093; 62110; 62950; 64021; 64029; 65002; 65003; 65020; 65043; 65047; 65120; 83006; 85068

== ENCOUNTER → 2017-12-27 | Outpatient (CLI) | payer OTHER ==
[~2017-12-27] MED LIST changes: +CEFDINIR300 MG PO; +COUMADIN 2 MG TA2 M1 PO; +PACERONE 200 M200 M1 PO; +PERCOCET PO
== END ==
LOC: RAD 10:56
DX: J90 Pleural effusion, not elsewhere classified (principal); I25.10 Atherosclerotic heart disease of native coronary artery without angina pectoris; Z95.1 Presence of aortocoronary bypass graft